=== PATIENT | female | born 1950 | race Caucasian/White ===

== ENCOUNTER 2018-02-26 15:23 | Emergency (ER) | payer OTHER, BC ==
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
[2018-02-26] MEDS ORDERED: Ketorolac Tromethamine 30 MG/ML VIAL ONE (16:46)
[2018-02-26] MEDS ORDERED: Diazepam 5 MG TAB ONE (16:51)
== END 2018-02-26 17:49 | disposition home or self-care (01) ==
LOC: ERS 15:23
DX: S16.1XXA Strain of muscle, fascia and tendon at neck level, initial encounter (principal); S29.012A Strain of muscle and tendon of back wall of thorax, initial encounter; F32.9 Major depressive disorder, single episode, unspecified; I10 Essential (primary) hypertension; Z79.899 Other long term (current) drug therapy; V43.52XA Car driver injured in collision with other type car in traffic accident, initial encounter
CPT/HCPCS: 71046; 72040; 96372; J1885

== ENCOUNTER 2018-06-18 11:30 | Outpatient (CLI) | payer BC ==
--- NOTE | 2018-06-18 13:38 | RAD ---
CHEST TWO VIEWS: 06/18/2018 HISTORY: Intermittent cough. COMPARISON: 02/26/2018 FINDINGS: No pneumothorax, pleural fluid, focal consolidation, or alveolar edema. Heart and mediastinal contou r is unremarkable. Multilevel thoracic spine degenerative disk space narrowing and anterior osteophyte formation. IMPRESSION: No acute findings. POS: [facility]
== END 2018-06-18 11:31 | disposition home or self-care (01) ==
LOC: BICMAMMO 11:30
PROVIDERS: ATTEND Internal Medicine
DX: Z12.31 Encounter for screening mammogram for malignant neoplasm of breast (principal); R05 Cough; R92.1 Mammographic calcification found on diagnostic imaging of breast; Z80.3 Family history of malignant neoplasm of breast
CPT/HCPCS: 71046; 77063; 77067

== ENCOUNTER 2019-05-31 11:59 | Outpatient (CLI) | payer MEDICARE, BC ==
--- NOTE | 2019-05-31 12:17 | RAD ---
XR Chest Pa Lat STANDARD History: Cough Comparison: Radiograph June 18, 2018 Findings: Lungs are clear. No pneumothorax or effusion. Cardiac silhouette and mediastinal contours a re within normal limits. No acute osseous abnormality. Impression: No acute intrathoracic abnormality.
== END 2019-05-31 12:00 | disposition home or self-care (01) ==
LOC: BICRAD 11:59
PROVIDERS: ATTEND Internal Medicine
DX: R05 Cough (principal)
CPT/HCPCS: 71046

== ENCOUNTER 2019-12-07 11:45 | Outpatient (CLI) | payer BC, MEDICARE ==
--- NOTE | 2019-12-07 13:13 | MMO ---
Bilateral MAMMO Bilat Screen [facility]. CLINICAL HISTORY: Patient is 68 years old and is seen for screening. The patient has no family history of breast cancer. The patient has no personal history of cancer. The patient has a history of left Excisional Biopsy in 1984 - benign and bilateral Breast reduction in 1990. VIEWS: The views performed were: bilateral craniocaudal with tomosynthesis and bilateral mediolateral oblique with tomosynthesis. FILMS COMPARED: The present examination has been compared to prior imaging studies performed at [facility] on 12/24/2012, 12/29/2014, 09/19/2016 and 06/18/2018. This study has been interpreted with the assistance of computer-aided detection. MAMMOGRAM FINDINGS: There are scattered fibroglandular densities. Benign calcifications are noted bilaterally. There are no suspicious masses, suspicious calcifications, or new areas of architectural distortion. IMPRESSION: THERE IS NO MAMMOGRAPHIC EVIDENCE OF MALIGNANCY. A ROUTINE FOLLOW-UP MAMMOGRAM IN 1 YEAR IS RECOMMENDED. THE RESULTS OF THIS EXAM WERE SENT TO THE PATIENT. ACR BI-RADS Category 2 - Benign finding MAMMOGRAPHY NOTE: 1. A negative mammogram report should not delay a biopsy if a dominant of clinically suspicious mass is present. 2. Approximately 10% to 15% of breast cancers are not detected by mammography. 3. Adenosis and dense breasts may obscure an underlying neoplasm. Reported by: SAMIRA PRADO MD Electonically Signed: [id number]
== END 2019-12-07 11:46 | disposition home or self-care (01) ==
LOC: BICMAMMO 11:45
PROVIDERS: ATTEND Internal Medicine
DX: Z12.31 Encounter for screening mammogram for malignant neoplasm of breast (principal); Z91.89 Other specified personal risk factors, not elsewhere classified; Z98.890 Other specified postprocedural states
CPT/HCPCS: 36415; 77063; 77067; 80053; 80061; 82607; 82728; 83036; 83540; 83735; 84439; 84443; 85025

== ENCOUNTER 2021-01-30 13:46 | Outpatient (CLI) | payer MEDICARE, BC | END 2021-01-30 13:47 | disposition home or self-care (01) | LOC: BICMAMMO 13:46 | PROVIDERS: ATTEND Internal Medicine | DX: Z12.31 Encounter for screening mammogram for malignant neoplasm of breast (principal); Z13.820 Encounter for screening for osteoporosis; R05 Cough; M85.89 Other specified disorders of bone density and structure, multiple sites; I70.0 Atherosclerosis of aorta; Z78.0 Asymptomatic menopausal state; Z80.3 Family history of malignant neoplasm of breast; Z91.89 Other specified personal risk factors, not elsewhere classified; Z98.82 Breast implant status | CPT/HCPCS: 71046; 77063; 77067; 77080 ==

== ENCOUNTER 2022-07-21 13:55 | Outpatient (CLI) | payer MEDICARE, BC | END 2022-07-21 13:56 | disposition home or self-care (01) | LOC: BICMAMMO 13:55 | PROVIDERS: ATTEND Internal Medicine | DX: Z12.31 Encounter for screening mammogram for malignant neoplasm of breast (principal); N63.10 Unspecified lump in the right breast, unspecified quadrant; N63.20 Unspecified lump in the left breast, unspecified quadrant; Z91.89 Other specified personal risk factors, not elsewhere classified; Z90.13 Acquired absence of bilateral breasts and nipples; Z80.3 Family history of malignant neoplasm of breast | CPT/HCPCS: 77063; 77067 ==

== ENCOUNTER 2023-01-07 09:00 | Outpatient (CLI) | payer MEDICARE, BC | END 2023-01-07 09:01 | disposition home or self-care (01) | LOC: BICULT 09:00 | PROVIDERS: ATTEND Internal Medicine | DX: Z13.820 Encounter for screening for osteoporosis (principal); R74.8 Abnormal levels of other serum enzymes; M85.89 Other specified disorders of bone density and structure, multiple sites; K76.0 Fatty (change of) liver, not elsewhere classified; Z78.0 Asymptomatic menopausal state | CPT/HCPCS: 76700; 77080 ==